=== PATIENT | male | born 1985 | race African-American/Black ===

== ENCOUNTER 2020-03-16 21:51 | Emergency (ER) | payer SELFPAY ==
[~2020-03-16] VITALS: Ht 175.3 cm; Wt 113.4 kg
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
[2020-03-16] MEDS ORDERED: HYDROcodone/Acetamin 5/325 tab ORAL ONE (22:15)
[2020-03-16] MEDS ORDERED: IBUPROFEN600 M1 ORAL (22:39)
[2020-03-16] MEDS ORDERED: HYDROCODON-ACE1 EA15 ORAL (22:39)
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
[2020-03-16 22:40] VITALS: BP 126/85
--- NOTE | 2020-03-16 22:40 | NUR ---
ER DISCHARGE NOTE: Patient is cleared to be discharged per ERMD, pt is aox4, on room air, with stable vital signs. pt was given dc and prescription instructions, pt was able to verbalize understanding, pt id band removed without complications. pt is able to ambulate with steady gait. pt took all belongings.
--- NOTE | 2020-03-17 15:34 | Diagnostic Imaging Report ---
Indication: Trauma, pain Technique: 3 views of the cervical spine Comparison: none Findings: There is reversal of the normal cervical lordosis. Otherwise normal bony alignment. No acute fractures. No prevertebral soft tissue swelling. Vertebral body heights and disc spaces are preserved Impression: Negative
== END 2020-03-16 22:45 | disposition home or self-care (01) ==
LOC: EMR 22:27
DX: S16.1XXA Strain of muscle, fascia and tendon at neck level, initial encounter (principal); V43.52XA Car driver injured in collision with other type car in traffic accident, initial encounter; Y92.411 Interstate highway as the place of occurrence of the external cause
CPT/HCPCS: 72040; 99283